=== PATIENT | female | born 1985 | race Caucasian/White ===

== ENCOUNTER 2020-11-22 13:18 | Outpatient (CLI) | payer BC ==
[2020-11-22] MEDS ORDERED: CETI10CA PO (13:49)
[2020-11-22] MEDS ORDERED: RAW PROBIOTIC PO (13:49)
[2020-11-22] MEDS ORDERED: WHEA236P PO (13:49)
[2020-11-22] MEDS ORDERED: LORA10TA75 PO (13:49)
[2020-11-22] MEDS ORDERED: SPIR25TA5 PO (13:49)
[2020-11-22] MEDS ORDERED: MAGN100T6 PO (13:49)
[2020-11-22 15:04] LABS: BASOPHILS % (AUTO) 1 % (0-1); EOSINOPHILS % (AUTO) 6 % (1-7); LYMPHOCYTES % (AUTO) 30 % (22-44); MEAN CORPUSCULAR HEMOGLOBIN 32.4 pg (27.0-34.8); MEAN CORPUSCULAR HGB CONC 34.4 g/dL (32.4-35.8); MEAN PLATELET VOLUME 7.5 fL (7.4-10.4); MONOCYTES % (AUTO) 5 % (2-9); NEUTROPHILS % (AUTO) 58 % (42-75); PLATELET COUNT 271 x10^3/uL (130-400); RED BLOOD COUNT 4.41 x10^6/uL (3.82-5.3); RED CELL DISTRIBUTION WIDTH 13.2 % (9.6-15.2)
[2020-11-22 15:07] LABS: MD NO
[2020-11-22 15:08] LABS: MICROSCOPIC AUTO
[2020-11-22 15:16] LABS: ALBUMIN 4.1 g/dL (3.4-5.0); ANION GAP 7 mmol/L (5-15); CHLORIDE 106 mmol/L (98-107)
[2020-11-22 15:21] LABS: ALANINE AMINOTRANSFERASE 23 U/L (12-78); ALKALINE PHOSPHATASE 55 U/L (45-117); BILIRUBIN,TOTAL 0.4 mg/dL (0.2-1.0); CREATININE 0.94 mg/dL (0.55-1.02); TOTAL PROTEIN 7.7 g/dL (6.4-8.2)
== END 2020-11-22 23:59 | disposition home or self-care (01) ==
LOC: STAR 13:18
PROVIDERS: ATTEND Obstetrics & Gynecology Gynecology
DX: Z01.812 Encounter for preprocedural laboratory examination (principal); Z20.822 Contact with and (suspected) exposure to COVID-19; N93.9 Abnormal uterine and vaginal bleeding, unspecified; N94.6 Dysmenorrhea, unspecified; N80.0 Endometriosis of uterus
CPT/HCPCS: 80053; 81001; 84702; 85025; 87086; 87635

== ENCOUNTER 2020-11-28 05:40 | Day surgery (SDC) | payer BC ==
[~2020-11-28] VITALS: Ht 180.3 cm; Wt 73.2 kg
[~2020-11-28 05:40] MED LIST: CETI10CA PO; LORA10TA75 PO; MAGN100T6 PO; RAW PROBIOTIC PO; SPIR25TA5 PO; WHEA236P PO
[2020-11-28] MEDS ORDERED: flonase INH (06:12)
[2020-11-28 06:19] LABS: HCG UR SG 1.024 (1.003-1.030)
[2020-11-28] MEDS ORDERED: LACTATED RINGERS 1,000 ML IV SCH (06:30)
[2020-11-28] MEDS ORDERED: CHLORHEXIDINE 15 ML UDC MM ONE (06:30)
[2020-11-28] MEDS ORDERED: BUPIVACAINE/PF 0.25% ONE (07:28)
[2020-11-28] MEDS ORDERED: MANNITOL PMX 20% 500 ML ONE (07:28)
[2020-11-28] MEDS ORDERED: EPINEPHRINE 1 MG/ML, 1ML ONE (07:28)
[2020-11-28] MEDS ORDERED: MEPERIDINE/PF 25MG/0.5ML IVPush PRN (07:30)
[2020-11-28] MEDS ORDERED: ACETAMINOPHEN 325 MG TABLET PO PRN (07:30)
[2020-11-28] MEDS ORDERED: LORazepam 2 MG/ML, 1ML IVPush PRN (07:30)
[2020-11-28] MEDS ORDERED: LABETALOL 5MG/ML, 20ML IV PRN (07:30)
[2020-11-28] MEDS ORDERED: hydrALAzine 20 MG/ML, 1ML IV PRN (07:30)
[2020-11-28] MEDS ORDERED: METHOCARBAMOL 1,000 MG in DEXTROSE 5% 100 ML IV PRN (07:30)
[2020-11-28] MEDS ORDERED: PROMETHAZINE 25 MG/ML, 1ML IVPush PRN (07:30)
[2020-11-28] MEDS ORDERED: ONDANSETRON 2MG/ML, 2ML IVPush PRN (07:30)
[2020-11-28] MEDS ORDERED: HYDROmorphone 1 MG/ML, 1ML INJ IVPush PRN (07:30)
[2020-11-28] MEDS ORDERED: CEFAZOLIN 1,000 MG ONE (07:42)
[2020-11-28] MEDS ORDERED: DEXAMETHASONE 4 MG/ML, 1ML ONE (07:42)
[2020-11-28] MEDS ORDERED: METOCLOPRAMIDE 5 MG/ML, 2ML ONE (07:42)
[2020-11-28] MEDS ORDERED: SUCCINYLCHOLINE 20 MG/ML, 10ML ONE (07:42)
[2020-11-28] MEDS ORDERED: PROPOFOL 10 MG/ML, 20ML ONE (07:42)
[2020-11-28] MEDS ORDERED: ONDANSETRON 2MG/ML, 2ML ONE (07:42)
[2020-11-28] MEDS ORDERED: ROCURONIUM 10 MG/ML,10ML ONE (07:42)
[2020-11-28] MEDS ORDERED: OXYcodone 5 MG/5 ML ORAL.SOL UDC ONE (09:20)
[2020-11-28] MEDS ORDERED: LORazepam 2 MG/ML, 1ML ONE (09:20)
[2020-11-28] MEDS ORDERED: FENTANYL PF 100 MCG/2ML ONE ×2 (09:20→10:05)
[2020-11-28] MEDS: FENTANYL PF 100 MCG/2ML IV PRN ×4 (09:29→10:30)
[2020-11-28] MEDS ORDERED: ACETAMINOPHEN 650 MG/20.3 ML UDC ONE (09:43)
[2020-11-28] MEDS: OXYcodone 5 MG/5 ML ORAL.SOL UDC PO PRN ×2 (09:44→09:55)
[2020-11-28] MEDS ORDERED: SIMETHICONE 80 MG CHEW TAB PO PRN (12:00)
[2020-11-28] MEDS ORDERED: OXYcodone/APAP 5/325MG TABLET ONE (14:12)
[2020-11-28] MEDS ORDERED: OXYcodone/APAP 5/325MG TABLET PO ONE (14:30)
== END 2020-11-28 15:50 | disposition home or self-care (01) ==
LOC: OUT 05:40
PROVIDERS: ATTEND Obstetrics & Gynecology Gynecology
DX: N93.9 Abnormal uterine and vaginal bleeding, unspecified (principal); N94.10 Unspecified dyspareunia; N94.6 Dysmenorrhea, unspecified; N80.0 Endometriosis of uterus; N83.8 Other noninflammatory disorders of ovary, fallopian tube and broad ligament; Z79.899 Other long term (current) drug therapy; Z88.5 Allergy status to narcotic agent; Z98.890 Other specified postprocedural states; Z82.49 Family history of ischemic heart disease and other diseases of the circulatory system
CPT/HCPCS: 36415; 58571; 81025; 86850; 86900; 88307; J0171; J0330; J0690; J1100; J2060; J2250; J2405; J2704; J2710; J2765; J3010; J7120; S2900